=== PATIENT | female | born 1985 | race Caucasian/White ===

== ENCOUNTER 2023-11-12 13:49 | Emergency (ER) | payer MEDICAID ==
[~2023-11-12] VITALS: Ht 167.6 cm; Wt 77.1 kg
[2023-11-12 14:29] VITALS: BP 122/84; PULSE 124; RESP 20; TEMP 98.6; O2SAT 98
[2023-11-12 14:44] VITALS: O2SAT 98
[2023-11-12] MEDS: NACL 0.9% 1,000 ML IV ONE (15:24)
[2023-11-12 15:30] LABS: BASOPHILS % (AUTO) 0.5 % (0.0-2.0); HEMATOCRIT 40.3 % (36-48); HEMOGLOBIN 13.3 g/dL (12.0-16.0); LYMPHOCYTES # (AUTO) 0.5 K/uL (2.5-16.5); MEAN CORPUSCULAR HEMOGLOBIN 26 pg (27-31); MEAN CORPUSCULAR HGB CONC 33 g/dL (33-37); MEAN CORPUSCULAR VOLUME 78.6 fL (80-94); MONOCYTES # (AUTO) 0.4 K/uL (0.8-1.0); MONOCYTES % (AUTO) 4.6 % (1.7-9.3); NEUTROPHILS # (AUTO) 7.9 K/uL (1.8-7.7); NEUTROPHILS % (AUTO) 88.8 % (42.2-75.2); PLATELET COUNT (AUTO) 280 K/uL (140-450); RED BLOOD CELL COUNT(AUTO) 5.13 MIL/uL (4.20-5.40); RED CELL DISTRIBUTION WIDTH 14.9 % (11.6-13.7); WHITE BLOOD COUNT (AUTO) 8.9 K/uL (4.8-10.8)
[2023-11-12 15:35] LABS: LYMPHOCYTES % (AUTO) 6.1 % (20.5-51.1)
[2023-11-12] MEDS: ONDANSETRON 4 MG/2 ML VIAL IVP ONE (15:38)
[2023-11-12] MEDS: MORPHINE SULFATE 4 MG/ML SYR IVP ONE (15:40)
[2023-11-12 15:48] LABS: ANION GAP 14.2 (8-16); CALCIUM 9.1 mg/dL (8.5-10.1); CARBON DIOXIDE 23.2 mmol/L (21-32); CREATININE 0.6 mg/dL (0.6-1.3); POTASSIUM 3.4 mmol/L (3.5-5.1)
[2023-11-12 16:06] LABS: BILIRUBIN,DIRECT 0.1 mg/dL (0.0-0.3); TOTAL BILIRUBIN 0.4 mg/dL (0.0-1.0); TOTAL PROTEIN, SERUM 8.5 g/dL (6.4-8.2)
[2023-11-12 17:11] LABS: APPEARANCE,URINE CLEAR (CLEAR); BILIRUBIN,URINE NEGATIVE (NEGATIVE); BLOOD, URINE 2+ (NEGATIVE); COLOR,URINE YELLOW (YELLOW); LEUKOCYTE ESTERASE ,URINE TRACE (NEGATIVE); NITRITE, URINE NEGATIVE (NEGATIVE); PROTEIN,URINE NEGATIVE (NEGATIVE); UGLUCOSE NEGATIVE (NEGATIVE); UROBILINOGEN,URINE 0.2 EU/dL (0.2 - 1)
[2023-11-12 17:29] VITALS: O2SAT 100
[2023-11-12 17:34] LABS: BACTERIA,URINE FEW /HPF (None Seen); MUCUS,URINE None Seen /LPF (None Seen); RBC,URINE 11-20 (MOD) /HPF (0-5); SQUAMOUS EPITHELIAL CELL,UR 0-3 (FEW) /LPF (0-3 (FEW)); TRICHOMONAS,URINE None Seen /HPF (None Seen); WBC,URINE 0-5 /HPF (0-5); YEAST,URINE None Seen /HPF (None Seen)
[2023-11-12] MEDS ORDERED: IBUP-2218 PO (17:50)
[2023-11-12] MEDS ORDERED: ONDA-188 SL (17:50)
[2023-11-12] MEDS ORDERED: ACET-8905 PO (17:50)
[2023-11-12 18:01] VITALS: BP 115/74; PULSE 83; RESP 18; TEMP 98.1; O2SAT 100
[2023-11-12] MEDS: KETOROLAC 30 MG/ML VIAL IVP ONE (18:03)
== END 2023-11-12 18:06 | disposition home or self-care (01) ==
LOC: MED 13:49
DX: R50.9 Fever, unspecified (principal); R11.10 Vomiting, unspecified; R03.0 Elevated blood-pressure reading, without diagnosis of hypertension; M54.6 Pain in thoracic spine; R00.0 Tachycardia, unspecified; M54.50 Low back pain, unspecified; M79.601 Pain in right arm; Z79.1 Long term (current) use of non-steroidal anti-inflammatories (NSAID)
CPT/HCPCS: 36415; 80048; 80076; 81001; 81025; 83605; 83690; 84703; 85025; 87040; 93971; 96361; 96374; 96375; 99285; J1885; J2270; J2405; J7030; Q0092